=== PATIENT | female | born 1995 | race Caucasian/White ===

== ENCOUNTER 2022-04-09 21:46 | Emergency (ER) | payer SELFPAY ==
[~2022-04-09] VITALS: Ht 162.6 cm; Wt 59.0 kg
[2022-04-09 22:45] VITALS: BP 136/93
[2022-04-09 23:52] LABS: Basophils # (auto) 0.1 10 ^3/uL (0-0.2); Basophils % (auto) 1.4 % (0.0-2.0); Eosinophils # (auto) 0.1 10 ^3/uL (0-0.8); Eosinophils % (auto) 1.3 % (0.0-7.0); Hematocrit 39.2 % (36.0-46.0); Hemoglobin 12.9 g/dL (12.2-16.2); Lymphocytes # (auto) 2.7 10 ^3/uL (0.4-5.4); Lymphocytes % (auto) 29.3 % (10.0-50.0); Mean Corpuscular Hgb Conc. 32.8 g/dL (32.0-36.0); Mean Corpuscular Volume 82.3 fL (80.0-100.0); Monocytes # (auto) 0.6 10 ^3/uL (0-1.3); Monocytes % (auto) 6.7 % (0.0-12.0); Neutrophils # (auto) 5.7 10 ^3/uL (1.6-8.6); Neutrophils % (auto) 61.3 % (37.0-80.0); Nucleated Red Blood Cells % 0.2 %; Red Blood Cells 4.77 10^6/uL (4.0-5.20); Red Cell Distribution Width 14.7 % (11.8-14.3); White Blood Cell 9.3 10^3/uL (4.4-10.8)
[2022-04-10 00:06] LABS: Albumin 4.3 g/dL (3.4-5.0); BUN/Creatinine Ratio 19.2; Calcium 9.2 mg/dL (8.5-10.1); Potassium 3.9 mmol/L (3.5-5.1)
[2022-04-10 00:07] LABS: Salicylate < 1.7 mg/dL (2.8-20.0)
[2022-04-10 00:09] LABS: Bilirubin, Total 0.4 mg/dL (0.2-1.0); Total Protein 7.8 g/dL (6.4-8.2)
[2022-04-10 00:17] LABS: Acetaminophen < 2.0 ug/mL (10-30)
== END 2022-04-10 04:32 | disposition home or self-care (01) ==
LOC: EDBD 21:46 → ER 21:46
DX: G47.00 Insomnia, unspecified (principal)
CPT/HCPCS: 36415; 80053; 80320; 80329; 85025